=== PATIENT | female | born 1980 | race Caucasian/White ===

== ENCOUNTER 2016-11-24 20:20 | Emergency (ER) | payer MEDICAID ==
[2016-11-24 20:20] VITALS: BMI 31.2
[2016-11-24 20:46] VITALS: BP 116/77; PULSE 66; RESP 18; TEMP 97.6; O2SAT 100
[2016-11-24] MEDS ORDERED: Tetanus/Diphtheria Toxoids 0.5 ml Syringe IM ONE ×2 (21:17→21:25)
[2016-11-24] MEDS ORDERED: Lidocaine 2% Inj (20ml) INFIL ONE (21:17)
--- NOTE | 2016-11-24 21:20 | C.PDOC ---
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 Otherwise, pt denies weakness, sensory or vascular deficit to injured finger, denies deformity. Time Seen by Provider: 11/24/16 21:08 Chief Complaint (Nursing): Abnormal Skin Integrity History Per: Patient Onset/Duration Of Symptoms: Sudden Onset Current Symptoms Are (Timing): Still Present Past Medical History Reviewed: Historical Data, Nursing Documentation, Vital Signs Vital Signs: Last Vital Signs Temp 97.6 F 11/24/16 20:42 Pulse 66 11/24/16 20:42 Resp 18 11/24/16 20:42 BP 116/77 11/24/16 20:42 Pulse Ox 100 11/24/16 21:22 - Medical History PMH: No Chronic Diseases Surgical History: No Surg Hx - [facility] Procedures BILAT ENDOSC DIVIS TUBE (12/19/13) REMOV TUBE & ECTOP PREG (12/19/13) Family History: States: No Known Family Hx - Social History Hx Alcohol Use: Yes Hx Substance Use: No - Immunization History Hx Tetanus Toxoid Vaccination: No Hx Influenza Vaccination: No Hx Pneumococcal Vaccination: No Review Of Systems Except As Marked, All Systems Reviewed And Found Negative. Constitutional: Negative for: Fever, Chills Skin: Positive for: Lesions Neurological: Negative for: Weakness, Numbness Physical Exam - Physical Exam Appears: Well, Non-toxic, No Acute Distress Skin: Normal Color, Warm, Dry, Other (Right thumb skin avulsion over the tip of the finger 2cm diameter with mild bloody oozing. NO cellulitis.) Extremity: Normal ROM, No Tenderness, Capillary Refill (less than 2sec to Right thumb), No Deformity, No Swelling Extremity: Bilateral: Atraumatic Neurological/Psych: Oriented x3, Normal Speech, Normal Motor, Normal Sensation, Normal Reflexes ED Course And Treatment O2 Sat by Pulse Oximetry: 100 Pulse Ox Interpretation: Normal Progress Note: On re-eavluation, pt is afebrile, hemodynamicaly stable. non- toxic. Right hand: laceration closed with sutures w/o difficulty. FAROM, no neurovascular deficits. Pt advised on wound care. ref. to f/u with PMD In 2 days for wound check. return if any new changes. Laceration - Laceration Repair Right humb Wound Length (In cm): skin avulsion 2cm Anesthesia: Lidocaine 2% (digital block) Wound Examination: Irrigated With Saline, No FB With Wound Exploration, No Tendon Injury With Wound Exploration Wound Closure: Suture (#3) Suture Technique And Material Used: Interrupted, Vicryl (5-0) Wound Complexity: Simple Disposition Counseled Patient/Family Regarding: Diagnosis, Need For Followup - Disposition Referrals: Didier Garcia MD [Medical Doctor] - Disposition: HOME/ ROUTINE Disposition Time: 21:55 Condition: STABLE Additional Instructions: Avoid water exposure for 2-3 days Light duty to injured finger Follow up with PMD In 2-3 days for wound check. return to Ed if any worsening or new changes. Suture absorbable can be removed in 5-7 days as need. Instructions: Finger Laceration (ED), Care For Your Absorbable Stitches (ED) - Clinical Impression Clinical Impression: Finger laceration
[2016-11-24] MEDS ORDERED: Lidocaine 2% Inj (20ml) ONE (21:25)
[2016-11-24] MEDS ORDERED: Bacitracin 500 Units/gm Oint Foilpak UD ONE (22:07)
== END 2016-11-24 22:24 | disposition home or self-care (01) ==
LOC: C.ER 20:20
DX: S61.011A Laceration without foreign body of right thumb without damage to nail, initial encounter (principal); W45.8XXA Other foreign body or object entering through skin, initial encounter; Y93.G1 Activity, food preparation and clean up; Y92.000 Kitchen of unspecified non-institutional (private) residence as the place of occurrence of the external cause

== ENCOUNTER 2018-03-01 19:33 | Emergency (ER) | payer MEDICAID, OTHER ==
[2018-03-01 19:33] VITALS: BMI 31.2
[2018-03-01 19:54] VITALS: PULSE 78; TEMP 98.2
[2018-03-01 20:23] VITALS: BP 113/72; RESP 19
[2018-03-01 20:24] VITALS: O2SAT 19
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
--- NOTE | 2018-03-02 09:03 | RAD ---
PROCEDURE: Cervical Spine Radiographs. HISTORY: Pain. COMPARISON: None. FINDINGS: BONES: Alignment maintained. No fracture. Dens Intact. DISC SPACES: Normal. SOFT TISSUES: Normal. No prevertebral soft tissue swelling. OTHER FINDINGS: None. IMPRESSION: Normal cervical spine radiographs
--- NOTE | 2018-03-02 09:03 | RAD ---
PROCEDURE: Right Knee Radiographs. HISTORY: injury COMPARISON: None. FINDINGS: BONES: Normal. No fracture. JOINTS: Normal. No osteoarthritis. JOINT EFFUSION: None. OTHER FINDINGS: None. IMPRESSION: Normal radiographs of the right knee.
--- NOTE | 2018-03-02 09:03 | RAD ---
PROCEDURE: Radiographs of the Lumbar Spine. HISTORY: injury COMPARISON: No prior. FINDINGS: BONES: Normal alignment. No listhesis. No fracture. DISC SPACES: Unremarkable. OTHER FINDINGS: None. IMPRESSION: Unremarkable radiographs of the lumbar spine.
== END 2018-03-01 21:26 | disposition home or self-care (01) ==
LOC: SUPCPDRO 19:33 → C.ER 19:33
DX: S16.1XXA Strain of muscle, fascia and tendon at neck level, initial encounter (principal); S39.012A Strain of muscle, fascia and tendon of lower back, initial encounter; S86.911A Strain of unspecified muscle(s) and tendon(s) at lower leg level, right leg, initial encounter; V49.9XXA Car occupant (driver) (passenger) injured in unspecified traffic accident, initial encounter

== ENCOUNTER 2018-05-07 12:55 | Emergency (ER) | payer OTHER ==
[2018-05-07 12:55] VITALS: BMI 31.2
[2018-05-07 13:01] VITALS: BP 127/79; PULSE 88; RESP 18; TEMP 98.1; O2SAT 100
--- NOTE | 2018-05-07 13:18 | C.PDOC ---
History Of Present Illness 37 y/o female presents to the ED c/o irregular vaginal bleeding that began yesterday. LMP ended 04/17/18. Prior surgical hx includes tubal ligation. Patient states normally she has regular flow, but this bleeding is described as earlier and heavier than usual. Patient also reports some cramping. States she had minimal relief after taking Advil at 8:30 this morning. No other symptoms. Time Seen by Provider: 05/07/18 13:01 Chief Complaint (Nursing): Female Genitourinary History Per: Patient History/Exam Limitations: no limitations Onset/Duration Of Symptoms: Days Current Symptoms Are (Timing): Still Present Quality Of Discomfort: Cramping Abnormal Vaginal Bleeding: Yes Last Menstral Period: 04/17/18 Past Medical History Reviewed: Historical Data, Nursing Documentation, Vital Signs Vital Signs: Last Vital Signs Temp 98.1 F 05/07/18 13:00 Pulse 88 05/07/18 13:00 Resp 18 05/07/18 13:00 BP 127/79 05/07/18 13:00 Pulse Ox 100 05/07/18 14:07 Surgical History: Other Surgeries: Tubal ligation - [facility] Procedures BILAT ENDOSC DIVIS TUBE (12/19/13) REMOV TUBE & ECTOP PREG (12/19/13) Family History: States: No Known Family Hx - Social History Hx Tobacco Use: No Hx Alcohol Use: No Hx Substance Use: No - Immunization History Hx Tetanus Toxoid Vaccination: No Hx Influenza Vaccination: No Hx Pneumococcal Vaccination: No Review Of Systems Except As Marked, All Systems Reviewed And Found Negative. Constitutional: Negative for: Fever, Sweats Cardiovascular: Negative for: Chest Pain Respiratory: Negative for: Shortness of Breath Gastrointestinal: Positive for: Abdominal Pain. Negative for: Nausea, Vomiting , Diarrhea Genitourinary: Positive for: Vaginal Bleeding. Negative for: Dysuria, Frequency , Incontinence Neurological: Negative for: Weakness, Numbness, Headache Physical Exam - Physical Exam Appears: Non-toxic, No Acute Distress Skin: Normal Color, Warm, Dry, No Pale Head: Atraumatic, Normacephalic Eye(s): bilateral: Normal Inspection, PERRL, EOMI Nose: Normal Oral Mucosa: Moist Neck: Supple Chest: Symmetrical Cardiovascular: Rhythm Regular, No Murmur Respiratory: Normal Breath Sounds, No Accessory Muscle Use, Other (NARD) Gastrointestinal/Abdominal: Soft, Tenderness (mild suprapubic tenderness), No Guarding, No Rebound Extremity: Bilateral: Atraumatic, Normal Color And Temperature, Normal ROM Pulses: Left Radial: Normal, Right Radial: Normal Neurological/Psych: Oriented x3, Normal Speech ED Course And Treatment - Laboratory Results Result Diagrams: 05/07/18 13:30 Urine POC: Negative O2 Sat by Pulse Oximetry: 100 (RA) Pulse Ox Interpretation: Normal Progress - Data Reviewed Data Reviewed: Lab, Old records Medical Decision Making Medical Decision Making: Impression: Vaginal bleeding, abdominal cramping Initial Plan: --CBC --UA --Urine preg --Toradol 60 mg IM Labs reviewed. Patient counseled regarding diagnosis of irregular menses and advised to follow up with OB for further evaluation. Disposition Counseled Patient/Family Regarding: Studies Performed, Diagnosis, Need For Followup - Disposition Referrals: YOUR,OBGYN [Other] Disposition: HOME/ ROUTINE Disposition Time: 13:47 Condition: IMPROVED Instructions: Absent or Irregular Periods Forms: [employer] (Scottish) - Clinical Impression Clinical Impression: Irregular menstrual cycle - Scribe Statement The provider has reviewed the documentation as recorded by the Scribe (Merry Carreon) Provider Attestation: All medical record entries made by the Scribe were at my direction and personally dictated by me. I have reviewed the chart and agree that the record accurately reflects my personal performance of the history, physical exam, medical decision making, and the department course for this patient. I have also personally directed, reviewed, and agree with the discharge instructions and disposition.
[2018-05-07 13:37] LABS: HEMOGLOBIN 11.6 g/dL (11.0-16.0); MEAN CELL VOLUME 84.9 fL (81.0-99.0); MEAN CORPUSCULAR HEMOGLOBIN 29.6 pg (27.0-31.0); MEAN CORPUSCULAR HGB CONC 34.9 g/dL (33.0-37.0); MEAN PLATELET VOLUME 8.4 fL (7.2-11.7); RBC 3.92 Mil/uL (3.80-5.20); RED CELL DISTRIBUTION WIDTH 13.5 % (11.5-14.5); WHITE BLOOD COUNT 8.8 K/uL (4.8-10.8)
[2018-05-07 13:48] LABS: URINE BILIRUBIN NEGATIVE (NEGATIVE); URINE BLOOD 3+ (NEGATIVE); URINE CLARITY Hazy (Clear); URINE COLOR Red (YELLOW); URINE GLUCOSE (UA) NORMAL (Normal); URINE LEUKOCYTE ESTERASE NEG Leu/uL (Negative); URINE PROTEIN 2+ mg/dL (NEGATIVE); URINE UROBILINOGEN NORMAL mg/dL (0.2-1.0)
== END 2018-05-07 14:10 | disposition home or self-care (01) ==
LOC: C.ER 12:55
DX: N92.6 Irregular menstruation, unspecified (principal)
CPT/HCPCS: 36415; 81001; 85027; 96372; 99283; J1885

== ENCOUNTER 2018-10-21 11:29 | Emergency (ER) | payer OTHER ==
[2018-10-21 11:30] VITALS: BMI 31.2
[2018-10-21 11:35] VITALS: BP 120/80; PULSE 78; RESP 20; TEMP 98.5; O2SAT 100
[2018-10-21 12:44] LABS: SQUAMOUS EPITHIAL 3 /hpf (0-5); URINE BILIRUBIN NEGATIVE (NEGATIVE); URINE BLOOD NEGATIVE (NEGATIVE); URINE CLARITY Hazy (Clear); URINE COLOR Yellow (YELLOW); URINE GLUCOSE (UA) NORMAL (Normal); URINE LEUKOCYTE ESTERASE NEG Leu/uL (Negative); URINE PROTEIN NEGATIVE (NEGATIVE)
[2018-10-21 12:48] LABS: HCG,QUALITATIVE URINE NEGATIVE (NEGATIVE)
--- NOTE | 2018-10-21 13:06 | C.PDOC ---
History Of Present Illness 37 y/o female pt presents to the ER c/o dysuria and frequency for x3 days. Associated sx includes right lower back pain. Pt denies nausea, vomiting, fever, chills, vaginal bleeding, lesions and vaginal discharge that was only seen yesterday but not today. Pt reports she is and has unprotected sex and is not concerned about STI. Time Seen by Provider: 10/21/18 11:51 Chief Complaint (Nursing): Female Genitourinary History Per: Patient History/Exam Limitations: no limitations Onset/Duration Of Symptoms: Days (x3) Current Symptoms Are (Timing): Still Present Past Medical History Reviewed: Historical Data, Nursing Documentation, Vital Signs Vital Signs: Last Vital Signs Temp 98.5 F 10/21/18 11:32 Pulse 78 10/21/18 11:32 Resp 20 10/21/18 11:32 BP 120/80 10/21/18 11:32 Pulse Ox 100 10/21/18 11:32 Surgical History: - [facility] Procedures BILAT ENDOSC DIVIS TUBE (12/19/13) REMOV TUBE & ECTOP PREG (12/19/13) Family History: States: No Known Family Hx - Social History Hx Tobacco Use: No Hx Alcohol Use: No Hx Substance Use: No - Immunization History Hx Tetanus Toxoid Vaccination: No Hx Influenza Vaccination: No Hx Pneumococcal Vaccination: No Review Of Systems Constitutional: Negative for: Fever, Chills Gastrointestinal: Negative for: Nausea, Vomiting Genitourinary: Positive for: Dysuria, Frequency, Vaginal Discharge (yesterday, not today ). Negative for: Vaginal Bleeding, Other (lesions) Musculoskeletal: Positive for: Back Pain Physical Exam - Physical Exam Appears: Non-toxic, No Acute Distress Skin: Warm, Dry Head: Normacephalic Eye(s): bilateral: Normal Inspection Oral Mucosa: Moist Throat: Normal Cardiovascular: Rhythm Regular Respiratory: Normal Breath Sounds, No Rales, No Rhonchi, No Wheezing Gastrointestinal/Abdominal: Soft, Tenderness (mild suprapubic ), No Distention, No Guarding, No Rebound Back: No CVA Tenderness Neurological/Psych: Oriented x3, Normal Speech ED Course And Treatment - Laboratory Results Lab Results: Urine Color Yellow (YELLOW) 10/21/18 12:06 Urine Clarity Hazy (Clear) 10/21/18 12:06 Urine pH 5.0 (5.0-8.0) 10/21/18 12:06 Ur Specific [place]ley 1.025 (1.003-1.030) 10/21/18 12:06 Urine Protein Negative mg/dL (NEGATIVE) 10/21/18 12:06 Urine Glucose (UA) Normal mg/dL (Normal) 10/21/18 12:06 Urine Ketones Negative mg/dL (NEGATIVE) 10/21/18 12:06 Urine Blood Negative (NEGATIVE) 10/21/18 12:06 Urine Nitrate Negative (NEGATIVE) 10/21/18 12:06 Urine Bilirubin Negative (NEGATIVE) 10/21/18 12:06 Urine Urobilinogen 2.0 mg/dL (0.2-1.0) H 10/21/18 12:06 Ur Leukocyte Esterase Neg Aryan/uL (Negative) 10/21/18 12:06 Urine WBC (Auto) < 1 /hpf (0-5) 10/21/18 12:06 Urine RBC (Auto) 2 /hpf (0-3) 10/21/18 12:06 Ur Squamous Epith Cells 3 /hpf (0-5) 10/21/18 12:06 Urine HCG, Qual Negative (NEGATIVE) 10/21/18 12:06 Urine HCG, Qual Negative (NEGATIVE) 10/21/18 12:06 O2 Sat by Pulse Oximetry: 100 (RA) Pulse Ox Interpretation: Normal Medical Decision Making Medical Decision Making: Plans: -- UA -- Urine culture -- HCG -- tylenol pt with uti symptoms, will tx. follow urine culture. Disposition Counseled Patient/Family Regarding: Studies Performed, Diagnosis, Need For Followup, Rx Given - Disposition Referrals: Didier Garcia MD [Medical Doctor] - Disposition: HOME/ ROUTINE Disposition Time: 13:04 Condition: GOOD Additional Instructions: Drink increased fluids. Take antibiotics as prescribed. Follow up with your ct scan technologist or Dr Garcia in a few days. Return for worse symptoms. to ED. Prescriptions: Nitrofurantoin Macrocrystals [Macrobid] 100 mg PO BID #14 cap Instructions: Urinary Tract Infection, Adult (DC) Forms: [facility] ([place]), General Discharge Instructions - Clinical Impression Clinical Impression: UTI (urinary tract infection) - PA / EMPLOYEE'S REPRESENTATIVE / Resident Statement MD/DO has reviewed & agrees with the documentation as recorded. - Scribe Statement The provider has reviewed the documentation as recorded by the Scribe Mercedes Do All medical record entries made by the Jackelynibkel were at my direction and personally dictated by me. I have reviewed the chart and agree that the record accurately reflects my personal performance of the history, physical exam, medical decision making, and the department course for this patient. I have also personally directed, reviewed, and agree with the discharge instructions and disposition.
== END 2018-10-21 13:24 | disposition home or self-care (01) ==
LOC: C.ER 11:29
DX: N39.0 Urinary tract infection, site not specified (principal)